=== PATIENT | male | born 1950 | race Caucasian/White ===

== ENCOUNTER → 2016-10-26 | Outpatient (CLI) | payer OTHER ==
[~2016-10-26] MED LIST: AMINOPHYLLINE 25 MG/ML, 10ML ONE; ASPI-496 PO; ASPI-515 PO; ATOR20TA PO; CHOL100011 PO; FURO-93 PO; REGADENOSON 0.4 MG/5 ML SYRINGE ONE; SEVE800T8 PO; SUCR500T PO; VIT D PO
== END | disposition home or self-care (01) ==
LOC: RAD 10:21
PROVIDERS: ATTEND Internal Medicine
DX: I42.9 Cardiomyopathy, unspecified (principal)
CPT/HCPCS: 78452; 93017; A9502; J2785; J0280

== ENCOUNTER → 2017-03-27 | Outpatient (CLI) | payer OTHER ==
[~2017-03-27] MED LIST changes: -AMINOPHYLLINE 25 MG/ML, 10ML ONE; -REGADENOSON 0.4 MG/5 ML SYRINGE ONE
== END | disposition home or self-care (01) ==
LOC: CVU 12:31
PROVIDERS: ATTEND Nuclear Medicine Nuclear Cardiology
DX: I08.0 Rheumatic disorders of both mitral and aortic valves (principal); I25.5 Ischemic cardiomyopathy; I25.2 Old myocardial infarction; Z99.2 Dependence on renal dialysis; Z95.1 Presence of aortocoronary bypass graft
CPT/HCPCS: 93306